=== PATIENT | female | born 1970 | race Caucasian/White ===

== ENCOUNTER 2021-12-16 06:20 | Day surgery (SDC) | payer BC, MEDICAID, SELFPAY ==
[~2021-12-16] VITALS: Ht 172.7 cm; Wt 122.5 kg
[2021-12-16] MEDS ORDERED: CEFAZOLIN SOD 1 GM in D5W 50 ML IV ONE (07:00)
[2021-12-16] MEDS ORDERED: ACETAMINOPHEN I.V. 1000 MG 100 ML IV ONE (10:31)
[2021-12-16] MEDS ORDERED: MEPERIDINE HCL/PF 25 MG/ML DISP.SYRIN IVP PRN (10:45)
[2021-12-16] MEDS ORDERED: HYDROmorphone 1 MG/ML INJ. CARTRIDGE IVP PRN ×2 (10:45)
[2021-12-16] MEDS ORDERED: LR 1,000 ML IV SCH (10:45)
[2021-12-16] MEDS ORDERED: LABETALOL 100 MG/ 20ML VIAL IVP PRN (10:45)
[2021-12-16] MEDS ORDERED: MIDAZOLAM HCL 2 MG/2 ML VIAL (VERSED) IVP PRN (10:45)
[2021-12-16] MEDS ORDERED: METOCLOPRAMIDE HCL 10 MG/2 ML VIAL IVP PRN (10:45)
[2021-12-16] MEDS ORDERED: hydrALAZINE HCL 20 MG/ML VIAL IVP PRN (10:45)
[2021-12-16] MEDS ORDERED: HYDROcodone/ACETAMIN 5-325 MG TAB (NORCO/ VICODIN) PO PRN (12:30)
[2021-12-16] MEDS ORDERED: LIDOCAINE 1% 10 MG/ML, 20 ML MDV ONE (12:30)
[2021-12-16] MEDS ORDERED: KETOROLAC TROMETHAMINE 30 MG VIAL ONE (12:30)
[2021-12-16] MEDS ORDERED: DEXAMETHASONE SOD PHOSPHATE 4 MG/ML VIAL ONE (12:30)
[2021-12-16] MEDS ORDERED: BUPIVACAINE /PF 0.25% 30 ML VIAL INJ ONE (12:30)
[2021-12-16] MEDS ORDERED: D5/0.45 NS 1,000 ML IV SCH (12:30)
[2021-12-16] MEDS ORDERED: MIDAZOLAM HCL 5 MG/ML VIAL (VERSED) IV ONE (12:30)
[2021-12-16] MEDS ORDERED: DESFLURANE 15 MIN GAS INH ONE (12:30)
[2021-12-16] MEDS ORDERED: LR 1,000 ML IV.SOLN IV ONE (12:30)
[2021-12-16] MEDS ORDERED: PROPOFOL 200MG/ 20ML VIAL (DIPRIVAN) IV ONE (12:30)
[2021-12-16] MEDS ORDERED: SUGAMMADEX SODIUM 200 MG/2 ML VIAL IV ONE (12:30)
[2021-12-16] MEDS ORDERED: ONDANSETRON HCL 4 MG/2 ML VIAL ONE (12:30)
[2021-12-16] MEDS ORDERED: ROCURONIUM BROMIDE 10 MG/ML (ZEMURON) ONE (12:30)
[2021-12-16] MEDS ORDERED: fentaNYL CITRATE/PF 100 MCG/2 ML AMP ONE (12:30)
[2021-12-16] MEDS ORDERED: ISOSULFAN BLUE 5 ML VIAL (LYMPHAZURIN) ONE (12:30)
[2021-12-16] MEDS ORDERED: METOCLOPRAMIDE HCL 10 MG/2 ML VIAL ONE (13:43)
[2021-12-16 14:42] VITALS: BP_SYST 127
== END 2021-12-16 14:35 | disposition home or self-care (01) ==
LOC: SMU 06:20 → SDS 06:20
PROVIDERS: ATTEND Colon & Rectal Surgery
DX: C50.912 Malignant neoplasm of unspecified site of left female breast (principal); I10 Essential (primary) hypertension; E66.01 Morbid (severe) obesity due to excess calories; Z80.1 Family history of malignant neoplasm of trachea, bronchus and lung; Z80.42 Family history of malignant neoplasm of prostate; Z20.822 Contact with and (suspected) exposure to COVID-19; Z79.899 Other long term (current) drug therapy
CPT/HCPCS: 19281; 19301; 36415; 38525; 78195; 87426; 88305; 88307; 88333; 88334; 88342; A4648; A9541; J0131; J0690; J1100; J1885; J2001; J2250; J2405; J2704; J2765; J3010; J3465; J3490 ×2; J7060; J7120; Q9968; U0003

== ENCOUNTER 2022-02-10 05:20 | Day surgery (SDC) | payer BC, MEDICAID ==
[~2022-02-10] VITALS: Ht 172.7 cm; Wt 121.1 kg
[2022-02-10] MEDS ORDERED: CEFAZOLIN 1 GM IVPB PREMIX 50 ML IV ONE (07:00)
[2022-02-10] MEDS ORDERED: MIDAZOLAM HCL 5 MG/5 ML VIAL IVP ONE (07:38)
[2022-02-10] MEDS ORDERED: PROPOFOL 200MG/ 20ML VIAL (DIPRIVAN) IV ONE (07:38)
[2022-02-10] MEDS ORDERED: HEPARIN SODIUM, PORCINE 10,000 UNITS/ 10 ML VIAL MC ONE (07:38)
[2022-02-10] MEDS ORDERED: LR 1,000 ML IV.SOLN IV ONE (07:38)
[2022-02-10] MEDS ORDERED: SEVOFLURANE 15 MIN GAS INH ONE (07:38)
[2022-02-10] MEDS ORDERED: fentaNYL CITRATE/PF 100 MCG/2 ML AMP IVP ONE (07:38)
[2022-02-10] MEDS ORDERED: BUPIVACAINE /PF 0.25% 30 ML VIAL INJ ONE (07:38)
[2022-02-10] MEDS ORDERED: SUCCINYLCHOLINE CHLORIDE 20 MG/ML(QUELICIN) IVP ONE (07:38)
[2022-02-10] MEDS ORDERED: NS IRRIG SOLN 1000 ML IR ONE (07:38)
[2022-02-10] MEDS ORDERED: NS 1000 ML IV.SOLN IV ONE (07:38)
[2022-02-10] MEDS ORDERED: ROCURONIUM BROMIDE 10 MG/ML (ZEMURON) IV ONE (07:38)
[2022-02-10] MEDS ORDERED: ONDANSETRON HCL 4 MG/2 ML VIAL IVP ONE (07:38)
[2022-02-10] MEDS ORDERED: DEXAMETHASONE SOD PHOSPHATE 4 MG/ML VIAL IVP ONE (07:38)
[2022-02-10] MEDS ORDERED: KETOROLAC TROMETHAMINE 30 MG VIAL IVP PRN (08:45)
[2022-02-10] MEDS ORDERED: ONDANSETRON HCL 4 MG/2 ML VIAL IVP PRN (08:45)
[2022-02-10] MEDS ORDERED: HYDROmorphone 1 MG/ML INJ. CARTRIDGE IVP PRN (08:45)
[2022-02-10] MEDS ORDERED: IBUPROFEN 600 MG TABLET PO ONE (08:45)
[2022-02-10] MEDS ORDERED: HYDROcodone/ACETAMIN 5-325 MG TAB (NORCO/ VICODIN) PO PRN ×2 (09:00)
[2022-02-10] MEDS ORDERED: D5/0.45 NS 1,000 ML IV SCH (09:00)
[2022-02-10 11:08] VITALS: BP_SYST 127
== END 2022-02-10 10:50 | disposition home or self-care (01) ==
LOC: SMU 05:20 → SDS 05:20
PROVIDERS: ATTEND Colon & Rectal Surgery
DX: Z45.2 Encounter for adjustment and management of vascular access device (principal); C50.919 Malignant neoplasm of unspecified site of unspecified female breast; I10 Essential (primary) hypertension; E66.01 Morbid (severe) obesity due to excess calories; Z20.822 Contact with and (suspected) exposure to COVID-19; Z79.899 Other long term (current) drug therapy
CPT/HCPCS: 36415 ×2; 36556; 71045; 77001; 87426; 87635; C1788; J0330; J0690; J1100; J1644; J2250; J2405; J2704; J3010; J3490; J7030; J7120; U0003; 76000

== ENCOUNTER 2023-04-22 18:01 | Emergency (ER) | payer BC, MEDICAID ==
[~2023-04-22] VITALS: Ht 172.7 cm; Wt 122.5 kg
[2023-04-22 18:10] VITALS: BP_SYST 137; PULSE 86; RESP 20; TEMP 98.1; O2SAT 96
[2023-04-22 20:54] LABS: BASOPHILS % (AUTO) 0.8 % (0.0-2.0); EOSINOPHILS # (AUTO) 0.1 K/uL (0.0-0.4); EOSINOPHILS % (AUTO) 1.2 % (0.0-4.0); HEMATOCRIT 42.1 % (36-48); LYMPHOCYTES # (AUTO) 1.5 K/uL (1.0-5.5); LYMPHOCYTES % (AUTO) 30.9 % (20.5-51.5); MEAN CORPUSCULAR HEMOGLOBIN 30 pg (27-31); MEAN CORPUSCULAR HGB CONC 33 % (32-36); MEAN CORPUSCULAR VOLUME 89 fL (79.0-98.0); MONOCYTES # (AUTO) 0.5 K/uL (0.0-1.0); NEUTROPHILS # (AUTO) 2.8 K/uL (1.8-7.7); NEUTROPHILS % (AUTO) 57.1 % (40.0-70.0); PLATELET COUNT (AUTO) 199 K/uL (130-430); RED BLOOD CELL COUNT(AUTO) 4.73 MIL/uL (4.2-6.2); RED CELL DISTRIBUTION WIDTH 13.4 % (9.0-15.0); WHITE BLOOD COUNT (AUTO) 4.9 K/uL (4.8-10.8)
[2023-04-22 21:01] LABS: ANION GAP 11 (5-15); CALCIUM 9.2 mg/dL (8.4-11.0); CHLORIDE 103 mmol/L (98-107); CREATININE 0.84 mg/dL (0.55-1.30); GFR AFRICAN AMERICAN 92 mL/min (>90); GLUCOSE 109 mg/dL (74-106); UREA NITROGEN, BLOOD 14 mg/dL (8-21)
[2023-04-22 21:18] LABS: ALANINE AMINOTRANSFERASE 51 U/L (12-78); ALBUMIN 3.9 g/dL (3.4-4.8); ASPARTATE AMINOTRANSFERASE 33 U/L (10-37); TOTAL BILIRUBIN 0.8 mg/dL (0.0-1.0)
--- NOTE | 2023-04-22 21:23 | NUR ---
Patient to ER bed 08 to gown for evaluation. Side rails up. Report given to NOMAN HOUSTON.
[2023-04-22] MEDS ORDERED: ASPIRIN 81 MG TAB.CHEW PO ONE (22:15)
--- NOTE | 2023-04-22 22:30 | NUR ---
Patient to US via .
[2023-04-22] MEDS ORDERED: iohexoL 350 mgI/mL, 100 ML INFUS..BTL IV ONE (22:34)
--- NOTE | 2023-04-22 23:02 | NUR ---
Patient return to room [address]
--- NOTE | 2023-04-22 23:12 | NUR ---
PIV 20 gauge placed to RFA.
--- NOTE | 2023-04-22 23:38 | NUR ---
Patient to CT via & loom cleaner.
--- NOTE | 2023-04-22 23:50 | NUR ---
Patient medicated with ASA 81 mg PO.
--- NOTE | 2023-04-23 | NUR ---
No change from previous assessment.
--- NOTE | 2023-04-23 02:00 | NUR ---
Dr. Lei bedside for pt eval
[2023-04-23 02:15] VITALS: BP_SYST 156; PULSE 88; RESP 20; TEMP 98.4; O2SAT 96
--- NOTE | 2023-04-23 02:15 | NUR ---
Patient given written and verbal discharge instructions and verbalizes understanding. ER DR. STILL discussed with patient the results and treatment provided. Patient in stable condition. ID arm band removed. IV catheter removed intact and dressing applied, no active bleeding. Patient educated on pain management and to follow up with PMD. Pain Scale 0. Opportunity for questions provided and answered. Medication side effect fact sheet provided.
== END 2023-04-23 02:15 | disposition home or self-care (01) ==
LOC: SED 18:01
DX: R60.0 Localized edema (principal); I21.4 Non-ST elevation (NSTEMI) myocardial infarction; R20.2 Paresthesia of skin; Z85.3 Personal history of malignant neoplasm of breast; Z79.899 Other long term (current) drug therapy
CPT/HCPCS: 99285; 71275; 93971; 71045; 80053; 83880; 83735; 84100; 85025; 84484; 36415; 70491; 76376; Q9967